=== PATIENT | male | born 1985 | race Caucasian/White ===

== ENCOUNTER 2016-08-14 21:02 | Emergency (ER) | payer OTHER ==
[~2016-08-14] VITALS: Ht 170.2 cm; Wt 71.9 kg
[2016-08-14 21:07] VITALS: Ht 170.2 cm; Wt 71.9 kg
[2016-08-14] MEDS ORDERED: SILVER SULFADIAZINE 1% 25 GM CR TOP ONE (23:00)
[2016-08-14] MEDS ORDERED: HYDROCODONE/APAP (5/325) TAB PO ONE (23:00)
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
[2016-08-15] MEDS ORDERED: HYDR-906 PO (00:59)
[2016-08-15] MEDS ORDERED: CYCL-319 PO (00:59)
[2016-08-15] MEDS ORDERED: NAPR-260 PO (00:59)
[2016-08-15] MEDS ORDERED: NEOM1PAC TP (01:00)
[2016-08-15 01:21] VITALS: BP 167/77; PULSE 77; RESP 20; TEMP 98.7
[2016-08-15] MEDS ORDERED: DIPHTH/TET/ACEL PERTUSS (ADULT) 0.5 ML VIAL IM* ONE (01:30)
== END 2016-08-15 01:21 | disposition home or self-care (01) ==
LOC: FTE 21:02
DX: S29.9XXA Unspecified injury of thorax, initial encounter (principal); S49.91XA Unspecified injury of right shoulder and upper arm, initial encounter; S69.91XA Unspecified injury of right wrist, hand and finger(s), initial encounter; V49.40XA Driver injured in collision with unspecified motor vehicles in traffic accident, initial encounter; Z23 Encounter for immunization
CPT/HCPCS: 71010; 71100; 72072; 90471; 90715